=== PATIENT | male | born 1960 | race Caucasian/White ===

== ENCOUNTER 2020-07-28 17:18 | Emergency (ER) | payer OTHER ==
[~2020-07-28] VITALS: Ht 167.6 cm; Wt 74.8 kg
[~2020-07-28 17:18] MED LIST: AVAPRO150 MG PO; AVAPRO75 MG; ELIQUIS5 MG
[2020-07-28] MEDS ORDERED: LIPITOR40 M1 (17:41)
[2020-07-28] MEDS ORDERED: TOPROL XL50 M1 (17:41)
[2020-07-28] MEDS ORDERED: LOTREL 5-40 MG1 EACH (17:41)
== END 2020-07-28 23:49 | disposition home or self-care (01) ==
LOC: ER 17:18 → CPU-OBS 18:08 → ER 07-29 00:20
DX: R55 Syncope and collapse (principal); I48.91 Unspecified atrial fibrillation; R53.1 Weakness; R07.89 Other chest pain; Z03.818 Encounter for observation for suspected exposure to other biological agents ruled out